=== PATIENT | male | born 1940 | race Asian ===

== ENCOUNTER 2019-05-21 08:38 | Emergency (ER) | payer OTHER ==
[~2019-05-21] VITALS: Ht 167.6 cm; Wt 67.1 kg
[2019-05-21 08:40] VITALS: BP_SYST 151
--- NOTE | 2019-05-21 08:40 | NUR ---
Patient to ER bed 4 to gown for evaluation. Side rails up. Assumed care.
[2019-05-21] MEDS ORDERED: NACL 0.9% 1,000 ML IV ONE (08:48)
--- NOTE | 2019-05-21 08:50 | NUR ---
Patient brought in by [facility], AAOx4 with c/c of lower back pain. Per patient he has been having back pain for several months now, and it has worsened yesterday. [facility], he was discharged home with prescription for Golden. Prescription was filled, last dose of norco taken at [id number], no relief provided. Patient describes the pain as sharp to lower back, right leg has tingling sensation. 10/10 rating, non radiating. Not accompanied with nausea, vomiting, diarrhea, constipation, chest pain, shortness of breath, or recent trauma/fall. Patient states movement and walking makes pain worse, non relieved by ice or warmth. at bedside for comfort. Will continue to follow up and monitor.
--- NOTE | 2019-05-21 08:52 | NUR ---
ER at bedside examining patient.
[2019-05-21] MEDS ORDERED: ONDANSETRON HCL 4 MG/2 ML VIAL IVP ONE (09:00)
[2019-05-21] MEDS ORDERED: MORPHINE 4 MG/ML INJ. SYRINGE IVP ONE ×2 (09:00→13:30)
--- NOTE | 2019-05-21 09:00 | NUR ---
# 20 gauge angiocath placed to LFA. Use of asceptic technique. Opsite placed over site. Blood return noted. Blood for lab unable to be drawn from site. Flushed with 10 cc of normal saline. No evidence of infiltration noted. Patient tolerated well. Lab called for blood draw.
--- NOTE | 2019-05-21 09:05 | NUR ---
XR at bedside for exam.
--- NOTE | 2019-05-21 09:10 | NUR ---
Lab at bedside for exams.
[2019-05-21 09:28] LABS: BASOPHILS % (AUTO) 0.3 % (0.0-2.0); HEMATOCRIT 30.5 % (36-54); HEMOGLOBIN 10.3 g/dL (14.0-18.0); LYMPHOCYTES # (AUTO) 0.3 K/uL (1.0-5.5); LYMPHOCYTES % (AUTO) 10.7 % (20.5-51.5); MEAN CORPUSCULAR HEMOGLOBIN 32 pg (27-31); MEAN CORPUSCULAR HGB CONC 34 % (32-36); MEAN CORPUSCULAR VOLUME 94 fL (79.0-98.0); MONOCYTES # (AUTO) 0.1 K/uL (0.0-1.0); MONOCYTES % (AUTO) 3.3 % (1.7-9.3); NEUTROPHILS % (AUTO) 84.7 % (40.0-70.0); PLATELET COUNT (AUTO) 187 K/uL (130-430); RED BLOOD CELL COUNT(AUTO) 3.25 MIL/uL (4.2-6.2); RED CELL DISTRIBUTION WIDTH 14.8 % (9.0-15.0); WHITE BLOOD COUNT (AUTO) 2.4 K/uL (4.8-10.8)
[2019-05-21 09:43] LABS: ANION GAP 8 (5-15); CALCIUM 9.3 mg/dL (8.4-11.0); CHLORIDE 102 mmol/L (98-107); CREATININE 1.42 mg/dL (0.55-1.30); GLUCOSE 122 mg/dL (70-99); POTASSIUM 4.2 mmol/L (3.5-5.1); SODIUM SERUM 137 mmol/L (136-145); UREA NITROGEN, BLOOD 29 mg/dL (8-21)
[2019-05-21 09:47] LABS: ALANINE AMINOTRANSFERASE 41 U/L (12-78); ALBUMIN 3.4 g/dL (3.4-4.8); AMYLASE 55 U/L (0-100); ASPARTATE AMINOTRANSFERASE 35 U/L (10-37); LIPASE 108 U/L (73-393); TOTAL BILIRUBIN 0.4 mg/dL (0.0-1.0)
[2019-05-21 10:03] LABS: INR 0.9 (0.80-1.20); PROTHROMBIN TIME 9.3 SECS (9.5-12.5)
--- NOTE | 2019-05-21 10:31 | NUR ---
Spoke with patient, he states his pain is 2-3/10, laying resting. Given a blanket. Patient requested a urinal and upon moving he states there was a cramp from his right calf to right buttocks up to lower back, intense cramping. Per MD he will order additional pain medication.
[2019-05-21] MEDS ORDERED: LORazepam 2 MG/ML VIAL (FOR ER USE) IVP ONE (10:45)
--- NOTE | 2019-05-21 11:01 | NUR ---
Patient given IVP ativan for pain managment, education provided for family and patient. Will continue to follow up and monitor.
--- NOTE | 2019-05-21 11:32 | NUR ---
MD at bedside discussing plan of care of patient. at bedside. Will continue to follow up and monitor.
[2019-05-21 11:35] LABS: BILIRUBIN,URINE NEGATIVE (NEGATIVE); BLOOD, URINE NEGATIVE (NEGATIVE); CLARITY/URINE CLEAR (CLEAR); COLOR,URINE YELLOW (YELLOW); GLUCOSE,URINE NEGATIVE (NEGATIVE); KETONES,URINE NEGATIVE (NEGATIVE); LEUKOCYTE ESTERASE ,URINE NEGATIVE (NEGATIVE); NITRITE, URINE NEGATIVE (NEGATIVE); PROTEIN URINE 1+ (NEGATIVE); UROBILINOGEN,URINE 0.2 (0.2-1.0)
[2019-05-21 13:30] VITALS: BP_SYST 157
--- NOTE | 2019-05-21 13:30 | NUR ---
Patient to be transferred to [facility]. Is being transferred due to higher level of care. Receiving facility has accepting physician and available space. ER physician has signed transfer form. Patient or responsible republican has agreed to transfer and signed form. Patient belongings inventoried and will be sent with patient. Copy of nursing notes, lab reports, EKG, Physicians Orders and X-rays to be sent with patient. Report called to MER[facility] Zhong at receiving facility. Receiving physician is Dr. Laughlin. [facility] ambulance service has been called for transfer. Arrived for transport.
== END 2019-05-21 13:30 | disposition short-term general hospital (02) ==
LOC: SED 08:38
DX: M46.26 Osteomyelitis of vertebra, lumbar region (principal); M89.8X8 Other specified disorders of bone, other site; G89.29 Other chronic pain; M54.5 Low back pain; E11.9 Type 2 diabetes mellitus without complications
CPT/HCPCS: 36415; 71045; 72131; 80053; 81003; 82150; 82550; 83605; 83690; 84484; 85025; 85610; 85730; 87040; 96374; 96375; 96376; 99285; J2060; J2270; J2405; J7030; 93005